=== PATIENT | female | born 2000 | race Caucasian/White ===

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

== ENCOUNTER 2022-04-13 05:46 | Inpatient (IN) | payer MEDICAID ==
[~2022-04-13] VITALS: Ht 170.2 cm; Wt 90.3 kg
[2022-04-13] VITALS (22 sets, daily range): BP systolic 100–163; BP diastolic 53–118
[~2022-04-13 05:46] MED LIST changes: +CLIN-144 PO; -CLIN300C12 PO; +DOCU-239 PO; +IBUP-1780 PO; +OXYC1TAB87 PO
[2022-04-13] MEDS ORDERED: D5 LR IV SOLUTION 1,000 ML IV ONE (06:23)
[2022-04-13] MEDS ORDERED: OXYTOCIN PRE-MIX DRIP 500 ML IV SCH ×2 (06:30→12:45)
[2022-04-13] MEDS ORDERED: D5 LR IV SOLUTION 1,000 ML IV SCH (06:30)
[2022-04-13] MEDS ORDERED: BUTORPHANOL INJ 2 MG/ML (STADOL) VIAL IV PRN (06:30)
[2022-04-13] MEDS ORDERED: LIDOCAINE/EPI 2% 1:200,00 (XYLOCAINE) 10 ML VIAL INJ PRN (06:30)
[2022-04-13] MEDS ORDERED: MINERAL OIL 30 ML TOP PRN (06:30)
[2022-04-13 06:31] LABS: BASOPHILS % (AUTO) 0 % (0-10); EOSINOPHILS # (AUTO) 0.1 10^3/uL (0.0-0.3); EOSINOPHILS % (AUTO) 1 % (0-10); HEMATOCRIT 27 % (35-52); HEMOGLOBIN 8.5 g/dL (11.5-16.0); LYMPHOCYTES # (AUTO) 2.7 10^3/uL (1.0-4.0); LYMPHOCYTES % (AUTO) 22 % (12-44); MEAN CORPUSCULAR HEMOGLOBIN 22 pg (25-34); MEAN CORPUSCULAR HGB CONC 31 g/dL (32-36); MEAN CORPUSCULAR VOLUME 72 fL (80-99); MEAN PLATELET VOLUME 10.5 fL (9.0-12.2); MONOCYTES # (AUTO) 0.7 10^3/uL (0.0-1.0); MONOCYTES % (AUTO) 6 % (0-12); NEUTROPHILS # (AUTO) 8.5 10^3/uL (1.8-7.8); NEUTROPHILS % (AUTO) 71 % (42-75); PLATELET COUNT 315 10^3/uL (130-400)
--- NOTE | 2022-04-13 06:39 | History & Physical-OB ---
OB - Chief Complaint & HPI Date/Time Date of Admission: Date of Admission: Apr 13, 2022 at 05:46 Date seen by a Provider: Apr 13, 2022 Time Seen by a Provider: 06:30 Chief Complaint/History OB-Reason for Admission/Chief: Induction of Labor Hx : 2 Hx Para: 1 Expected Date of Delivery: Apr 13, 2022 Gestational Age in Weeks: 39 Gestational Age in Days: 2 Admission Nurse Assessment Rev: Yes Allergies and Home Medications Allergies Coded Allergies: ceftriaxone (Unverified Allergy, Intermediate, rash, 02/05/09) Patient Home Medication List Home Medication List Reviewed: Yes Docusate Sodium (Dok) 100 Mg Capsule, 100 MG PO BID Prescribed by: BOBBY GARNICA on 09/05/20 0842 Famotidine (Pepcid) 20 Mg Tablet, 40 MG PO DAILY Prescribed by: ERIK AMHMOOD on 09/03/20 1548 Ibuprofen (Ibuprofen) 800 Mg Tablet, 800 MG PO Q6HR Prescribed by: BOBBY GARNICA on 09/05/20 0842 Oxycodone HCl/Acetaminophen (Percocet 5-325 mg Tablet) 1 Each Tablet, 1 TAB PO Q4H PRN for PAIN-MODERATE (5-7) Prescribed by: BOBBY GARNICA on 09/05/20 0842 Pnv #116/Iron Fumarate/FA/Dha (Expecta Combo Pack) 1 Each Combo..pkg, 1 EACH PO, (Reported) Entered as Reported by: TIFFANIE SHIRLEY on 02/03/20 0104 OB - History Hx of Present Care: Yes Ultrasounds: Normal mid trimester US Obstetrical Complications: None Medical Complications: None Delivery History Hx Blood Disorders: No Adverse Rxn to Tranfusion: No Patient Past Medical History no chronic medical problems Social History/Family History 2nd Hand Smoke Exposure: No Immunizations Tetanus Booster (TDap): Unknown OB - Admission Exam Physical Exam HEENT: Moist Membranes Heart: Rhythm Normal Lungs: Clear Abdomen: Gravid Cervical Dilatation: 2cm Effacement: Other (60) Station: -3 Membranes: Ruptured Amniotic Fluid: Clear Heart Rate: 130's Accelerations: Accelerations Present Short Term Variability: Present Intensity: Mild Perera Scoring Tool (Modified) Dilation (cm): 1-2cm (1) Effacement (%): 51-79% (2) Descent/Station: -3 (0) Cervix Consistency: Medium(1) Cervix Position: Middle/Mid-Position (1) Add 1 point for: Each previous vaginal delivery (1) Perera Score: 7 Labs Laboratory Tests Test 04/13/22 06:10 Range/Units White Blood Count 12.0 H 4.3-11.0 10^3/uL Red Blood Count 3.82 3.80-5.11 10^6/uL Hemoglobin 8.5 L 11.5-16.0 g/dL Hematocrit 27 L 35-52 % Mean Corpuscular Volume 72 L 80-99 fL Mean Corpuscular Hemoglobin 22 L 25-34 pg Mean Corpuscular Hemoglobin Concent 31 L 32-36 g/dL Red Cell Distribution Width 16.5 H 10.0-14.5 % Platelet Count 315 130-400 10^3/uL Mean Platelet Volume 10.5 9.0-12.2 fL Immature Granulocyte % (Auto) 0 % Neutrophils (%) (Auto) 71 42-75 % Lymphocytes (%) (Auto) 22 12-44 % Monocytes (%) (Auto) 6 0-12 % Eosinophils (%) (Auto) 1 0-10 % Basophils (%) (Auto) 0 0-10 % Neutrophils # (Auto) 8.5 H 1.8-7.8 10^3/uL Lymphocytes # (Auto) 2.7 1.0-4.0 10^3/uL Monocytes # (Auto) 0.7 0.0-1.0 10^3/uL Eosinophils # (Auto) 0.1 0.0-0.3 10^3/uL Basophils # (Auto) 0.0 0.0-0.1 10^3/uL Immature Granulocyte # (Auto) 0.1 0.0-0.1 10^3/uL OB - Assessment/Plan/Diagnosis Assessment Assessment: induction of labor Admission Dx 1. IUP at term 39w2d gestation Admission Status: Inpatient Order (span 2 midnights) Reason for Inpatient Admission: Induction of labor Plan Plan: Induction Induction Method: AROM Other Plan -at this point she doesn't desire epidural -pitocin as necessary BEVERLY ELY MD Apr 13, 2022 06:39
--- NOTE | 2022-04-13 12:37 | OB Labor & Delivery Record ---
L&D History Date of Service Date of Service: Apr 13, 2022 History Expected Date of Delivery: Apr 20, 2022 Gestational Age in Weeks: 39 Hx : 2 Hx Para: 2 Complications Events: Routine care Operative Indications (Cesarea: N/A-Vaginal Delivery Intrapartal Events: None L&D Stage1 Stage One Onset of Labor - Date: Apr 13, 2022 Onset of Labor - Time: 06:33 Monitors and Tracing Monitor Mode: Internal Heart Rate: 140 Monitor Accelerations: Uniform Monitor Decelerations: None Station: 0 Turkey Cleaner Variability: Average (6-10) Short Term Variability: Present Presentation: Vertex Vital Signs VS - Last 72 Hours, by Label 04/13/22 04/13/22 04/13/22 04/13/22 05:46 08:00 08:15 08:30 Temp 36.5 36.2 Pulse 103 18 100 94 Resp 16 18 18 18 B/P (MAP) 118/66 (83) 121/61 (81) 117/70 (86) Pulse Ox 100 O2 Delivery Room Air Room Air Room Air Room Air 04/13/22 04/13/22 04/13/22 04/13/22 08:45 09:00 09:15 09:30 Pulse 89 82 100 102 Resp 18 18 18 18 B/P (MAP) 115/75 (88) 122/72 (89) 150/118 (129) 163/79 (107) O2 Delivery Room Air Room Air Room Air Room Air 04/13/22 04/13/22 04/13/22 04/13/22 09:45 10:00 10:15 10:30 Pulse 85 86 78 83 Resp 18 18 18 18 B/P (MAP) 131/74 (93) 122/70 (87) 124/66 (85) 132/76 (94) O2 Delivery Room Air Room Air Room Air Room Air 04/13/22 04/13/22 04/13/22 04/13/22 10:45 11:00 11:15 11:30 Pulse 78 83 Resp 18 18 B/P (MAP) 110/77 (88) 118/64 (82) O2 Delivery Room Air Room Air Room Air Room Air Signs of Distress by FHT Signs of Distress no Rupture of Membranes Spontaneous Ruture of Membrane: No Amniotic Membrane Rupture Time: 632 Amniotic Membrane Fluid Desc.: Clear L&D Stage2 Stage Two Stage II Date: Apr 13, 2022 Stage II Time: 12:18 Monitors and Tracing Monitor Mode: Internal Heart Rate: 140 Monitor Accelerations: Uniform Monitor Decelerations: Variable Turkey Cleaner Variability: Average (6-10) Short Term Variability: Present Position: Left Occiput Anterior Presentation: Vertex Signs of Distress by FHT Signs of Distress no Cord Descript/Complications Cord Vessel Description: 3 Vessels Delivery Type Infant Delivery Method: Spontaneous Vaginal Anterior Shoulder: Left Episiotomy/Perineal Laceration Laceraction(s)/Extensions: No Episiotomy Description: 1st degree (minor) Sutures Used: Vicryl Condition of Delivery 1 minute Comment: 8 5 minute Comment: 9 Condition of Condition of Infant: Living Exam: No Observed Abnormalities Resuscitation Resuscitation: N/A - Spontaneous Resp L&D Stage3 Stage Three Stage III Date: Apr 13, 2022 Stage III Time: 12:23 Pictocin Pitocin Administration mu/min: 10 Pitocin ml/hr: 10 Pitocin Administration Comment: pitocin increased Placenta Delivery Placenta Delivery: Spontaneous Delivery Summary Summary Estimated blood loss (mL): 250 Condition of Delivery Examined: Cervix Examined Post Hemorrhage: No Intervention Required none BEVERLY ELY MD Apr 13, 2022 12:37
[2022-04-13] MEDS ORDERED: WITCH HAZEL(TUCKS) 40 EA JAR TOP PRN (12:45)
[2022-04-13] MEDS ORDERED: NALOXONE 0.4 MG/ML 1 ML (NARCAN) VIAL IV PRN (12:45)
[2022-04-13] MEDS ORDERED: BENZOCAINE/MENTHOL (DERMOPLAST) 56 ML CAN TP PRN (12:45)
[2022-04-13] MEDS ORDERED: TETANUS,DIPTH,PERTUSS P/F (BOOSTRIX) 0.5 ML VIAL IM ONE (12:45)
[2022-04-13] MEDS ORDERED: MEASLES,MUMPS,RUBELLA 1 EA INJ SQ ONE (12:45)
[2022-04-13] MEDS ORDERED: CATHETER FLUSH 10 ML SYR IV SCH ×2 (14:00)
[2022-04-13] MEDS: ACETAMINOPHEN 500 MG TAB (TYLENOL) PO SCH ×2 (14:08→22:05)
[2022-04-13] MEDS: IBUPROFEN 600 MG (MOTRIN) TAB PO SCH ×2 (14:08→22:05)
[2022-04-13] MEDS: DOCUSATE SODIUM 100 MG (COLACE) CAP PO SCH (22:05)
[2022-04-14 03:36] VITALS: BP 150/62
[2022-04-14] MEDS: ACETAMINOPHEN 500 MG TAB (TYLENOL) PO SCH ×2 (03:36→10:22)
[2022-04-14] MEDS: IBUPROFEN 600 MG (MOTRIN) TAB PO SCH ×2 (03:36→10:22)
[2022-04-14 05:38] LABS: BASOPHILS % (AUTO) 0 % (0-10); EOSINOPHILS % (AUTO) 0 % (0-10); HEMATOCRIT 24 % (35-52); HEMOGLOBIN 7.3 g/dL (11.5-16.0); LYMPHOCYTES # (AUTO) 2.9 10^3/uL (1.0-4.0); LYMPHOCYTES % (AUTO) 20 % (12-44); MEAN CORPUSCULAR HEMOGLOBIN 22 pg (25-34); MEAN CORPUSCULAR HGB CONC 30 g/dL (32-36); MEAN CORPUSCULAR VOLUME 74 fL (80-99); MEAN PLATELET VOLUME 10.4 fL (9.0-12.2); MONOCYTES # (AUTO) 1.1 10^3/uL (0.0-1.0); MONOCYTES % (AUTO) 7 % (0-12); NEUTROPHILS # (AUTO) 10.8 10^3/uL (1.8-7.8); NEUTROPHILS % (AUTO) 72 % (42-75); PLATELET COUNT 244 10^3/uL (130-400); WHITE BLOOD COUNT 14.9 10^3/uL (4.3-11.0)
[2022-04-14 09:45] VITALS: BP 119/54
[2022-04-14] MEDS: DOCUSATE SODIUM 100 MG (COLACE) CAP PO SCH (10:22)
[2022-04-14 13:15] VITALS: BP 115/58
--- NOTE | 2022-04-14 13:20 | Discharge Summary ---
Diagnosis/Chief Complaint Date of Admission Apr 13, 2022 at 05:46 Date of Discharge April 14, 2022 Admission Diagnosis Admission Diagnosis 1. Intrauterine at 39 weeks gestation Discharge Diagnosis 1. Intrauterine at 39 weeks gestation Chief Complaint/HPI Chief Complaint/HPI 22-year-old 2 now term 2 who initially presented to labor and delivery for induction of labor at 39 weeks 2 days gestation. Her EDC was noted to be April 18, 2022. Her care was essentially unremarkable and obtained through [facility]. Discharge Summary-OBS Procedures 1. Spontaneous vaginal delivery 2. Repair of minor perineal laceration Discharge Physical Examination Allergies: Coded Allergies: ceftriaxone (Unverified Allergy, Intermediate, rash, 02/05/09) Vitals & I&Os Vital Sign - Last 12Hours Date Time Temp Pulse Resp B/P (MAP) Pulse Ox O2 Delivery O2 Flow Rate FiO2 04/14/22 09:45 36.5 76 18 119/54 (75) 98 Room Air General Appearance: Alert Respiratory: Clear to Auscultation Cardiovascular: Regular Rate Abdominal: Soft (with uterus firm) Hospital Course Was the Problem List Reviewed?: Yes upon admission on April 13, 2022 she underwent amniotomy with placement of scalp electrode. Fluid was noted to be clear at that time. She continued labor ultimately requiring low-dose Pitocin augmentation maximum 10 mU/m. She ultimately went on to completion and delivered over a very minor perineal laceration of term viable male. If it was delivered at 1218 onJuly 2021. Following delivery she underwent routine care orders. She had no complications during the remainder of hospital stay. She was noted to have hemoglobin in the morning of April 14 of 7.3. This was compared to admission of 8.5. She was without dizziness upon standing. She will be on iron therapy outpatient. She will follow-up with myself in 6 weeks at [facility] Labs Laboratory Tests 04/14/22 05:18: White Blood Count 14.9H, Red Blood Count 3.29L, Hemoglobin 7.3L, Hematocrit 24L, Mean Corpuscular Volume 74L, Mean Corpuscular Hemoglobin 22L, Mean Corpuscular Hemoglobin Concent 30L, Red Cell Distribution Width 16.7H, Platelet Count 244, Mean Platelet Volume 10.4, Immature Granulocyte % (Auto) 1, Neutrophils (%) (Auto) 72, Lymphocytes (%) (Auto) 20, Monocytes (%) (Auto) 7, Eosinophils (%) (Auto) 0, Basophils (%) (Auto) 0, Neutrophils # (Auto) 10.8H, Lymphocytes # (Auto) 2.9, Monocytes # (Auto) 1.1H, Eosinophils # (Auto) 0.0, Basophils # (Auto) 0.0, Immature Granulocyte # (Auto) 0.1 Discharge Instructions to patient/family Please see electronic discharge instructions given to patient. Discharge Medications Reviewed and agree with Discharge Medication list on patient's Discharge Instruction sheet BEVERLY ELY MD Apr 14, 2022 13:20
[2022-04-14] MEDS ORDERED: FERR325T18 PO (13:22)
--- NOTE | 2022-04-14 13:23 | Discharge Inst-Women's Service ---
Discharge Inst-Women's Serv Depart Medication/Instructions New, Converted or Re-Newed RX: Transmitted to Pharmacy ([facility] [address]) Problems Reviewed?: Yes Consults/Follow Up Additional Follow Up: Yes ( Dr Ely in 6 weeks at [facility]) Activity Driving Instructions: No Driving for 1 Week Nothing Inside Vagina: No [place] (for 6 weeks) Diet Discharge Diet: Regular Diet Return to The Hospital For: as below Symptoms to Report to : Bleeding Excessive, Fever Over 101 Degrees F, Urination Difficulty, Lightheadedness, Vaginal Discharge Foul, Dizziness/Fainting For Any Problems or Questions: Contact Your Physician (at [facility]) BEVERLY ELY MD Apr 14, 2022 13:23
[2022-04-14 15:15] VITALS: BP 115/58
== END 2022-04-14 15:15 | disposition home or self-care (01) | DRG 807 ==
LOC: LDRP 05:46
PROVIDERS: ADMIT Family Medicine; ATTEND Family Medicine
PROC: 10E0XZZ Delivery of Products of Conception, External Approach (ICD-10-PCS; principal; 2022-04-13)
PROC: 0HQ9XZZ Repair Perineum Skin, External Approach (ICD-10-PCS; 2022-04-13)
PROC: 10907ZC Drainage of Amniotic Fluid, Therapeutic from Products of Conception, Via Natural or Artificial Opening (ICD-10-PCS; 2022-04-13)
DX: O70.0 First degree perineal laceration during delivery (principal); Z37.0 Single live birth; Z3A.39 39 weeks gestation of pregnancy; Z88.1 Allergy status to other antibiotic agents
CPT/HCPCS: 36415; 85025; 86850; 86900; 86901